=== PATIENT | male | born 1995 | race American Indian/Alaskan Native ===

== ENCOUNTER 2020-10-05 20:45 | Inpatient (IN) | payer OTHER ==
[~2020-10-05 20:45] MED LIST: Iopamidol-370 76% 500 ML 1 ML ONE
[2020-10-05 21:30] LABS: Hemoglobin 4.1 g/dL (14.0-18.0); Red Blood Cell (RBC) Count 2.28 mill/uL (4.70-6.10); Reflex for Review?? YES
[2020-10-05 21:46] LABS: Iron 11 ug/dL (65-175); Iron Binding Capacity, Total 419 mcg/dL (261-462)
[2020-10-05 21:48] LABS: ALT (SGPT) 8 U/L (8-55); AST (SGOT) 8 U/L (5-34); Albumin 4.1 g/dL (3.5-5.0); Alkaline Phosphatase 62 U/L (40-110); Anion Gap 13 mmol/L (10-20); BUN (Urea Nitrogen) 9 mg/dL (8.9-20.6); Bilirubin, Total 0.3 mg/dL (0.2-1.2); Calc. Creatinine Clearance 0 mL/min (70-130); Carbon Dioxide 25 mmol/L (22-29); Chloride 103 mmol/L (98-107); Globulin 3.4 g/dL (2.4-3.5); Glucose 121 mg/dL (70-105); Iron 11 ug/dL (65-175); Iron Binding Capacity, Total 421 mcg/dL (261-462); Protein, Total 7.5 g/dL (6.0-8.3); Sodium 137 mmol/L (136-145)
[2020-10-05 21:49] LABS: #Basophils 0.1 thou/uL (0.0-0.2); #Eosinphils 0.1 thou/uL (0.0-0.7); #Lymphocytes 1.2 thou/uL (1.20-3.40); #Monocytes 0.6 thou/uL (0.11-0.59); #Neutrophils 9.1 thou/uL (1.40-6.50); %Basophils 0.6 % (0.0-1.0); %Eosinophils 0.6 % (0.0-10.0); %Lymphocytes 10.7 % (21.0-51.0); %Monocytes 5.1 % (0.0-10.0); Hypochromia MODERATE=16-30 cells (100X) (0-5/hpf); MDiff Complete? YES; Mean Corpuscular HGB CONC 28.4 g/dL (32.0-36.0); Mean Corpuscular Volume 63.4 fL (78.0-98.0); Mean Platelet Volume 7.9 fL (7.4-10.4); Platelet Count 332 thou/uL (130-400); Platelet Morphology Comment Appears Adequate; Polychromasia SLIGHT = 2-3 cells (100X) (0-2/hpf); RBC Distribution Width 23.4 % (11.5-14.5)
[2020-10-06 03:16] VITALS: BMI 28.8
[2020-10-06] MEDS ORDERED: Pantoprazole 40 MG VIAL IVP SCH (04:30)
[2020-10-06] MEDS ORDERED: Ondansetron PF 4 MG/2 ML Vial IVP PRN (04:36)
[2020-10-06] MEDS ORDERED: Acetaminophen 325 MG TAB PO PRN (04:36)
[2020-10-06] MEDS ORDERED: Cefepime 1 GM in Sodium Chloride 0.9% 100 ML IVPB SCH (06:00)
[2020-10-06 07:44] LABS: Hemoglobin 6.1 g/dL (14.0-18.0)
[2020-10-06] MEDS ORDERED: VANCOMYCIN 2 GRAM/400 ML BAG 2 GM in Premix Bag 1 BAG IVPB SCH (08:00)
[2020-10-06 08:01] LABS: SARS-CoV-2 NAA Rapid Test Not Detected (NotDetected)
[2020-10-06 08:06] LABS: INR-International Normal Ratio 1.1; PTT 30.9 sec (22.9-36.1); Prothrombin Time 14.6 sec (12.0-14.7)
[2020-10-06 09:21] LABS: Hemoglobin 6.4 g/dL (14.0-18.0); Mean Corpuscular HGB CONC 31.6 g/dL (32.0-36.0); Mean Corpuscular Hemoglobin 22.9 pg (27.0-31.0); Mean Corpuscular Volume 72.5 fL (78.0-98.0); Mean Platelet Volume 7.5 fL (7.4-10.4); Platelet Count 319 thou/uL (130-400); RBC Distribution Width 26.4 % (11.5-14.5); Red Blood Cell (RBC) Count 2.78 mill/uL (4.70-6.10); White Blood Cell (WBC) Count 8.7 thou/uL (4.8-10.8)
[2020-10-06 09:45] LABS: #Basophils 0.1 thou/uL (0.0-0.2); #Eosinphils 0.1 thou/uL (0.0-0.7); #Lymphocytes 1.9 thou/uL (1.20-3.40); #Monocytes 0.7 thou/uL (0.11-0.59); %Basophils 0.7 % (0.0-1.0); %Lymphocytes 21.6 % (21.0-51.0); %Monocytes 7.8 % (0.0-10.0); Anisocytosis SLIGHT = 6-15 cells (100X) (0-5/hpf); MDiff Complete? YES; Microcytosis SLIGHT = 6-15 cells (100X) (0-5/hpf); Platelet Morphology Comment Appears Adequate; Poikilocytosis SLIGHT = 6-15 cells (100X) (0-5/hpf); Schistocytes SLIGHT = 2-5 cells (100X) (0-1/hpf)
[2020-10-06] MEDS ORDERED: diphenhydrAMINE 50 MG/ML VIAL IVP PRN (10:13)
[2020-10-06 11:29] LABS: Bacteria/HPF None Seen HPF (None Seen); Bilirubin Negative (Negative); Blood, Urine Negative (Negative); Clarity Clear (Clear); Glucose, Urine (Dipstick) Normal (Negative); Ketone, Urine Negative (Negative); Leukocyte Negative Leu/uL (Negative); Nitrite Negative (Negative); Protein, Urine (Dipstick) 10 mg/dL (Neg-Trace); RBC/HPF 0-3 HPF (0-3); Specific Gravity, Urine 1.031 (1.002-1.036); Squamous Epithelial None Seen HPF (0-3); Urobilinogen Normal mg/dL (Less than 2); WBC/HPF 0-3 HPF (0-3); pH, Urine 7.5 (5.0-9.0)
[2020-10-06 11:31] LABS: Urine Culture Reflex No No
[2020-10-06] MEDS ORDERED: Iopamidol-370 76% 500 ML 1 ML ONE (11:56)
[2020-10-06] MEDS ORDERED: GoLYTELY 4,000 ml Bottle PO SCH ×2 (14:45→15:00)
[2020-10-06] MEDS ORDERED: Vancomycin 1.5 GRAM/300 ML BAG 1.5 GM in Premix Bag 1 BAG IVPB SCH (16:00)
[2020-10-06] MEDS: Pantoprazole 40 MG VIAL IVP SCH (20:34)
[2020-10-06 21:59] LABS: #Basophils 0.1 thou/uL (0.0-0.2); #Eosinphils 0.1 thou/uL (0.0-0.7); #Lymphocytes 1.9 thou/uL (1.20-3.40); #Monocytes 0.6 thou/uL (0.11-0.59); #Neutrophils 5.6 thou/uL (1.40-6.50); %Basophils 0.9 % (0.0-1.0); %Eosinophils 1.6 % (0.0-10.0); %Lymphocytes 23.1 % (21.0-51.0); %Monocytes 7.5 % (0.0-10.0); %Neutrophils 66.9 % (42.0-75.0); Hemoglobin 8.5 g/dL (14.0-18.0); Mean Corpuscular HGB CONC 33.1 g/dL (32.0-36.0); Mean Corpuscular Hemoglobin 25.3 pg (27.0-31.0); Mean Corpuscular Volume 76.4 fL (78.0-98.0); Mean Platelet Volume 8.6 fL (7.4-10.4); Platelet Count 310 thou/uL (130-400); RBC Distribution Width 25.2 % (11.5-14.5); Red Blood Cell (RBC) Count 3.34 mill/uL (4.70-6.10); White Blood Cell (WBC) Count 8.3 thou/uL (4.8-10.8)
[2020-10-07 06:04] LABS: Anion Gap 10 mmol/L (10-20); BUN (Urea Nitrogen) 7 mg/dL (8.9-20.6); Calc. Creatinine Clearance 196 mL/min (70-130); Calcium 9.1 mg/dL (7.8-10.44); Carbon Dioxide 26 mmol/L (22-29); Chloride 105 mmol/L (98-107); Glucose 88 mg/dL (70-105); Sodium 137 mmol/L (136-145)
[2020-10-07 06:10] LABS: INR-International Normal Ratio 1.1; PTT 26.3 sec (22.9-36.1); Prothrombin Time 14.8 sec (12.0-14.7)
[2020-10-07 07:02] LABS: #Basophils 0.1 thou/uL (0.0-0.2); #Eosinphils 0.2 thou/uL (0.0-0.7); #Monocytes 0.7 thou/uL (0.11-0.59); #Neutrophils 4.8 thou/uL (1.40-6.50); %Basophils 0.9 % (0.0-1.0); %Eosinophils 2.2 % (0.0-10.0); %Lymphocytes 26.1 % (21.0-51.0); %Neutrophils 61.7 % (42.0-75.0); Anisocytosis MODERATE=16-30 cells (100X) (0-5/hpf); Hemoglobin 8.3 g/dL (14.0-18.0); MDiff Complete? YES; Mean Corpuscular HGB CONC 32.4 g/dL (32.0-36.0); Mean Corpuscular Hemoglobin 24.6 pg (27.0-31.0); Mean Corpuscular Volume 76.1 fL (78.0-98.0); Mean Platelet Volume 7.9 fL (7.4-10.4); Platelet Count 284 thou/uL (130-400); Platelet Morphology Comment Appears Adequate; RBC Distribution Width 24.8 % (11.5-14.5); Red Blood Cell (RBC) Count 3.38 mill/uL (4.70-6.10); White Blood Cell (WBC) Count 7.7 thou/uL (4.8-10.8)
[2020-10-07 07:22] LABS: Vancomycin, Trough 3.7 ug/mL
[2020-10-07] MEDS: Pantoprazole 40 MG VIAL IVP SCH ×2 (08:06→20:59)
[2020-10-07] MEDS ORDERED: Sodium Bicarbonate 2.5 MEQ/5 ML VIAL ONE (08:44)
[2020-10-07] MEDS ORDERED: Fentanyl 100 MCG/2 ML VIAL ONE (08:44)
[2020-10-07] MEDS ORDERED: Midazolam HCl 2 mg/2 ml Vial ONE (08:44)
[2020-10-07] MEDS ORDERED: Acetaminophen 500 MG TAB PO PRN (11:12)
[2020-10-08 05:59] LABS: Hemoglobin 9.1 g/dL (14.0-18.0); Mean Corpuscular HGB CONC 32.1 g/dL (32.0-36.0); Mean Corpuscular Hemoglobin 24.7 pg (27.0-31.0); Mean Corpuscular Volume 76.9 fL (78.0-98.0); RBC Distribution Width 25.7 % (11.5-14.5); Red Blood Cell (RBC) Count 3.67 mill/uL (4.70-6.10); White Blood Cell (WBC) Count 6.7 thou/uL (4.8-10.8)
[2020-10-08 06:08] LABS: Anion Gap 13 mmol/L (10-20); BUN (Urea Nitrogen) 10 mg/dL (8.9-20.6); Calc. Creatinine Clearance 189 mL/min (70-130); Calcium 9.5 mg/dL (7.8-10.44); Carbon Dioxide 25 mmol/L (22-29); Chloride 106 mmol/L (98-107); Glucose 94 mg/dL (70-105); Potassium 4.2 mmol/L (3.5-5.1); Sodium 140 mmol/L (136-145)
[2020-10-08 06:17] LABS: #Basophils 0.1 thou/uL (0.0-0.2); #Eosinphils 0.1 thou/uL (0.0-0.7); #Lymphocytes 1.5 thou/uL (1.20-3.40); #Monocytes 0.6 thou/uL (0.11-0.59); #Neutrophils 4.4 thou/uL (1.40-6.50); %Basophils 1.4 % (0.0-1.0); %Eosinophils 1.4 % (0.0-10.0); %Lymphocytes 22.5 % (21.0-51.0); %Monocytes 8.8 % (0.0-10.0); %Neutrophils 65.9 % (42.0-75.0); Anisocytosis SLIGHT = 6-15 cells (100X) (0-5/hpf); MDiff Complete? YES; Mean Platelet Volume 8.4 fL (7.4-10.4); Ovalocytes SLIGHT = 2-5 cells (100X) (0-1/hpf); Platelet Count 271 thou/uL (130-400); Platelet Morphology Comment Appears Adequate; Polychromasia SLIGHT = 2-3 cells (100X) (0-2/hpf)
[2020-10-08] MEDS: Pantoprazole 40 MG VIAL IVP SCH ×2 (09:38→21:15)
[2020-10-09 06:15] LABS: Anion Gap 14 mmol/L (10-20); BUN (Urea Nitrogen) 11 mg/dL (8.9-20.6); Calc. Creatinine Clearance 194 mL/min (70-130); Calcium 9.2 mg/dL (7.8-10.44); Carbon Dioxide 24 mmol/L (22-29); Chloride 107 mmol/L (98-107); Glucose 110 mg/dL (70-105); Potassium 4.3 mmol/L (3.5-5.1); Sodium 141 mmol/L (136-145)
[2020-10-09] MEDS: Ferrous Gluconate 324 MG TAB PO SCH (08:56)
[2020-10-09] MEDS: Pantoprazole 40 MG VIAL IVP SCH ×2 (08:56→20:35)
[2020-10-09] MEDS ORDERED: Magnesium Citrate 300 ML BOT PO SCH (18:00)
[2020-10-10 08:48] LABS: Hemoglobin 9.3 g/dL (14.0-18.0); Mean Corpuscular HGB CONC 31.4 g/dL (32.0-36.0); Mean Corpuscular Hemoglobin 23.8 pg (27.0-31.0); Mean Corpuscular Volume 75.7 fL (78.0-98.0); Mean Platelet Volume 8.1 fL (7.4-10.4); Platelet Count 226 thou/uL (130-400); RBC Distribution Width 25.6 % (11.5-14.5); Red Blood Cell (RBC) Count 3.92 mill/uL (4.70-6.10); White Blood Cell (WBC) Count 6.3 thou/uL (4.8-10.8)
[2020-10-10 09:01] LABS: Anion Gap 14 mmol/L (10-20); BUN (Urea Nitrogen) 11 mg/dL (8.9-20.6); Calc. Creatinine Clearance 196 mL/min (70-130); Calcium 9.2 mg/dL (7.8-10.44); Carbon Dioxide 23 mmol/L (22-29); Chloride 105 mmol/L (98-107); Glucose 89 mg/dL (70-105); INR-International Normal Ratio 1.1; Magnesium 2.5 mg/dL (1.6-2.6); Potassium 3.9 mmol/L (3.5-5.1); Prothrombin Time 14.6 sec (12.0-14.7); Sodium 138 mmol/L (136-145)
[2020-10-10 09:09] LABS: #Eosinphils 0.1 thou/uL (0.0-0.7); #Monocytes 0.4 thou/uL (0.11-0.59); #Neutrophils 4.8 thou/uL (1.40-6.50); %Basophils 0.3 % (0.0-1.0); %Eosinophils 1.9 % (0.0-10.0); %Lymphocytes 15.5 % (21.0-51.0); %Neutrophils 75.3 % (42.0-75.0); Anisocytosis MODERATE=16-30 cells (100X) (0-5/hpf); Elliptocytes SLIGHT = 2-5 cells (100X) (0-1/hpf); Hypochromia SLIGHT = 6-15 cells (100X) (0-5/hpf); MDiff Complete? YES; Microcytosis SLIGHT = 6-15 cells (100X) (0-5/hpf); Platelet Morphology Comment Appears Adequate; Poikilocytosis MODERATE=16-30 cells (100X) (0-5/hpf); Polychromasia SLIGHT = 2-3 cells (100X) (0-2/hpf); Schistocytes SLIGHT = 2-5 cells (100X) (0-1/hpf); Tear Drops SLIGHT = 2-5 cells (100X) (0-1/hpf)
[2020-10-10] MEDS: Pantoprazole 40 MG VIAL IVP SCH ×2 (09:26→21:00)
[2020-10-10] MEDS: Ferrous Gluconate 324 MG TAB PO SCH (09:35)
[2020-10-10 14:25] LABS: #Basophils 0.1 thou/uL (0.0-0.2); #Eosinphils 0.1 thou/uL (0.0-0.7); #Lymphocytes 1.1 thou/uL (1.20-3.40); #Monocytes 0.5 thou/uL (0.11-0.59); #Neutrophils 5.2 thou/uL (1.40-6.50); %Basophils 0.8 % (0.0-1.0); %Eosinophils 1.7 % (0.0-10.0); %Lymphocytes 15.6 % (21.0-51.0); %Monocytes 7.5 % (0.0-10.0); %Neutrophils 74.4 % (42.0-75.0); Hemoglobin 9.2 g/dL (14.0-18.0); Mean Corpuscular HGB CONC 32.9 g/dL (32.0-36.0); Mean Corpuscular Hemoglobin 24.9 pg (27.0-31.0); Mean Corpuscular Volume 75.6 fL (78.0-98.0); Mean Platelet Volume 8.6 fL (7.4-10.4); Platelet Count 205 thou/uL (130-400); RBC Distribution Width 25.6 % (11.5-14.5); White Blood Cell (WBC) Count 6.9 thou/uL (4.8-10.8)
[2020-10-10] MEDS ORDERED: Ferrous Gluconate 324 MG TAB PO SCH (21:00)
[2020-10-11 07:09] LABS: Anion Gap 12 mmol/L (10-20); BUN (Urea Nitrogen) 12 mg/dL (8.9-20.6); Calc. Creatinine Clearance 199 mL/min (70-130); Calcium 9.1 mg/dL (7.8-10.44); Carbon Dioxide 26 mmol/L (22-29); Chloride 104 mmol/L (98-107); Glucose 90 mg/dL (70-105); Sodium 138 mmol/L (136-145)
[2020-10-11 07:30] LABS: #Eosinphils 0.1 thou/uL (0.0-0.7); #Lymphocytes 1.3 thou/uL (1.20-3.40); #Monocytes 0.5 thou/uL (0.11-0.59); #Neutrophils 3.9 thou/uL (1.40-6.50); %Basophils 0.2 % (0.0-1.0); %Eosinophils 1.8 % (0.0-10.0); %Lymphocytes 21.8 % (21.0-51.0); %Monocytes 8.8 % (0.0-10.0); %Neutrophils 67.4 % (42.0-75.0); Anisocytosis MODERATE=16-30 cells (100X) (0-5/hpf); Elliptocytes SLIGHT = 2-5 cells (100X) (0-1/hpf); Hemoglobin 8.9 g/dL (14.0-18.0); MDiff Complete? YES; Mean Corpuscular HGB CONC 31.9 g/dL (32.0-36.0); Mean Corpuscular Hemoglobin 24.3 pg (27.0-31.0); Mean Corpuscular Volume 76.1 fL (78.0-98.0); Mean Platelet Volume 10.1 fL (7.4-10.4); Microcytosis SLIGHT = 6-15 cells (100X) (0-5/hpf); Platelet Count 178 thou/uL (130-400); Platelet Morphology Comment Appears Adequate; Poikilocytosis MODERATE=16-30 cells (100X) (0-5/hpf); Polychromasia SLIGHT = 2-3 cells (100X) (0-2/hpf); RBC Distribution Width 25.4 % (11.5-14.5); Red Blood Cell (RBC) Count 3.66 mill/uL (4.70-6.10); Schistocytes SLIGHT = 2-5 cells (100X) (0-1/hpf); White Blood Cell (WBC) Count 5.8 thou/uL (4.8-10.8)
[2020-10-11] MEDS: Pantoprazole 40 MG VIAL IVP SCH ×2 (08:57→20:46)
[2020-10-11] MEDS: Piperacillin/Tazobactam 4.5 GM in Sodium Chloride 0.9% 100 ML IVPB SCH ×3 (08:57→23:53)
[2020-10-11] MEDS: Ferrous Gluconate 324 MG TAB PO SCH (08:57)
[2020-10-12 07:31] VITALS: BP 114/59; TEMP 98.7
[2020-10-12 07:32] LABS: #Basophils 0.1 thou/uL (0.0-0.2); #Eosinphils 0.1 thou/uL (0.0-0.7); #Monocytes 0.4 thou/uL (0.11-0.59); %Basophils 0.9 % (0.0-1.0); %Eosinophils 2.1 % (0.0-10.0); %Lymphocytes 18.5 % (21.0-51.0); %Monocytes 7.3 % (0.0-10.0); %Neutrophils 71.2 % (42.0-75.0); Hemoglobin 8.6 g/dL (14.0-18.0); Mean Corpuscular HGB CONC 30.5 g/dL (32.0-36.0); Mean Corpuscular Hemoglobin 23.2 pg (27.0-31.0); Mean Corpuscular Volume 76.1 fL (78.0-98.0); Mean Platelet Volume 10.2 fL (7.4-10.4); Platelet Count 195 thou/uL (130-400); Red Blood Cell (RBC) Count 3.71 mill/uL (4.70-6.10); White Blood Cell (WBC) Count 5.6 thou/uL (4.8-10.8)
[2020-10-12 07:39] LABS: Anion Gap 12 mmol/L (10-20); BUN (Urea Nitrogen) 12 mg/dL (8.9-20.6); Calc. Creatinine Clearance 192 mL/min (70-130); Calcium 9.2 mg/dL (7.8-10.44); Carbon Dioxide 27 mmol/L (22-29); Chloride 105 mmol/L (98-107); Glucose 102 mg/dL (70-105); Potassium 3.9 mmol/L (3.5-5.1); Sodium 140 mmol/L (136-145)
[2020-10-12] MEDS: Piperacillin/Tazobactam 4.5 GM in Sodium Chloride 0.9% 100 ML IVPB SCH ×2 (08:56→16:30)
[2020-10-12] MEDS: Pantoprazole 40 MG VIAL IVP SCH (08:57)
[2020-10-12] MEDS: Ferrous Gluconate 324 MG TAB PO SCH (08:57)
== END 2020-10-12 19:24 | disposition short-term general hospital (02) | DRG 357 ==
LOC: ERS 20:45 → 2SW 23:27 → ONC 10-09 17:43
PROVIDERS: ADMIT Internal Medicine; ATTEND Internal Medicine
PROC: 30233N1 Transfusion of Nonautologous Red Blood Cells into Peripheral Vein, Percutaneous Approach (ICD-10-PCS; principal; 2020-10-05)
PROC: 0WBF3ZX Excision of Abdominal Wall, Percutaneous Approach, Diagnostic (ICD-10-PCS; 2020-10-07)
DX: C49.A3 Gastrointestinal stromal tumor of small intestine (principal); K92.1 Melena; Z20.822 Contact with and (suspected) exposure to COVID-19; D72.829 Elevated white blood cell count, unspecified; D50.0 Iron deficiency anemia secondary to blood loss (chronic); D63.0 Anemia in neoplastic disease; Z83.3 Family history of diabetes mellitus
CPT/HCPCS: 36415; 36416; 36430; 49180; 74150; 74177; 77002; 80048; 80053; 80202; 81001; 82274; 82728; 83010; 83540; 83550; 83735; 85014; 85018; 85025; 85060; 85610; 85730; 86316; 86850; 86900; 86901; 87040; 87149; 88305; 88313; 88333; 88334; 88341; 88342; C9113; J0692; J1200; J2250; J2543; J3010; J3370; J3490; P9016; Q9967; U0002